=== PATIENT | male | born 1995 | race Caucasian/White ===

== ENCOUNTER 2016-09-25 13:50 | Emergency (ER) | payer OTHER ==
[~2016-09-25] VITALS: Ht 185.4 cm; Wt 108.8 kg
[2016-09-25] MEDS ORDERED: KEFLEX500 MG PO (16:37)
[2016-09-25 16:40] VITALS: BP 132/76
== END 2016-09-25 16:40 | disposition home or self-care (01) | DRG 125 ==
LOC: ED 13:50
DX: S05.02XA Injury of conjunctiva and corneal abrasion without foreign body, left eye, initial encounter (principal); H10.9 Unspecified conjunctivitis; X58.XXXA Exposure to other specified factors, initial encounter; Y93.89 Activity, other specified; Y92.89 Other specified places as the place of occurrence of the external cause

== ENCOUNTER 2017-01-08 09:14 | Emergency (ER) | payer OTHER ==
[~2017-01-08] VITALS: Ht 185.4 cm; Wt 104.5 kg
[~2017-01-08 09:14] MED LIST: KEFLEX500 MG PO
[2017-01-08 11:15] VITALS: BP 126/81
[2017-01-08] MEDS ORDERED: NORCO1 TA1 PO (11:16)
[2017-01-08] MEDS ORDERED: CEPHALEXIN500 MG PO (11:16)
== END 2017-01-08 11:30 | disposition home or self-care (01) | DRG 605 ==
LOC: ED 09:14
PROC: 0HQGXZZ Repair Left Hand Skin, External Approach (ICD-10-PCS; principal; 2017-01-08)
DX: S61.311A Laceration without foreign body of left index finger with damage to nail, initial encounter (principal); W23.1XXA Caught, crushed, jammed, or pinched between stationary objects, initial encounter; Y93.H9 Activity, other involving exterior property and land maintenance, building and construction; Y92.89 Other specified places as the place of occurrence of the external cause

== ENCOUNTER 2017-01-09 14:09 | Emergency (ER) | payer OTHER ==
[~2017-01-09] VITALS: Ht 185.4 cm; Wt 105.0 kg
[~2017-01-09 14:09] MED LIST changes: +CEPHALEXIN500 MG PO; +NORCO1 TA1 PO
[2017-01-09 14:49] VITALS: BP 145/84
== END 2017-01-09 14:49 | disposition home or self-care (01) | DRG 950 ==
LOC: ED 14:09
DX: S61.311D Laceration without foreign body of left index finger with damage to nail, subsequent encounter (principal)